=== PATIENT | male | born 1990 | race African-American/Black ===

== ENCOUNTER 2022-10-17 23:00 | Inpatient (IN) | payer OTHER ==
[2022-10-17 23:27] VITALS: RESP 18; BMI 28.7
[2022-10-18] MEDS ORDERED: MAGNESIUM CITRATE 300 ML BOTTLE PO PRN (00:16)
[2022-10-18] MEDS ORDERED: ACETAMINOPHEN 325 MG TABLET (FP) PO PRN (00:16)
[2022-10-18] MEDS ORDERED: MAG HYDROX/AL HYDROX/SIMETH 30 ML UNIT-DOSE CUP PO PRN (00:16)
[2022-10-18] MEDS ORDERED: IBUPROFEN 400 MG TABLET (FP) PO PRN (00:16)
[2022-10-18] MEDS ORDERED: guaiFENesin 200 MG/10 ML 10 ML UNIT-DOSE CUPS PO PRN (00:16)
[2022-10-18] MEDS ORDERED: P-EPHED 60MG/TRIPROLIDI 2.5MG TABLET PO PRN (00:16)
[2022-10-18] MEDS ORDERED: LOPERAMIDE HCL 2 MG CAPSULE PO PRN (00:16)
[2022-10-18] MEDS ORDERED: MAGNESIUM HYDROX 2400MG/30ML ORAL SUSPENSION 30 ML CUP PO PRN (00:16)
[2022-10-18] MEDS: NICOTINE 7 MG/24 HOURS TOPICAL PATCH TD SCH (11:00)
[2022-10-18] MEDS: PRENATAL VITAMINS W/ FOLIC ACID TABLET (FP) PO SCH (11:00)
[2022-10-18] MEDS: NICOTINE 10 MG CARTRIDGE (INHALER) IH PRN (12:35)
[2022-10-18 13:46] LABS: HEMATOCRIT 39.7 % (35.4-49); HEMOGLOBIN 13.1 GM/dL (11.7-16.9); MCH 30.4 pg (25.7-33.7); MCHC 32.9 g/dl (32.0-35.9); MEAN CELL VOLUME 92.4 fl (80-96); MEAN PLT VOLUME 8.3 fl (7.5-11.1); PLATELET COUNT 299 10^3/uL (134-434); WHITE BLOOD COUNT 6.6 K/mm3 (4.0-10.0)
[2022-10-18 13:46] LABS: PH,URINE 5.5 (5.0-8.0); URINE APPEARANCE CLEAR; URINE BILIRUBIN NEGATIVE (NEGATIVE); URINE COLOR YELLOW; URINE GLUCOSE (UA) NEGATIVE (NEGATIVE); URINE KETONE NEGATIVE (NEGATIVE); URINE LEUK ESTERASE NEGATIVE (NEGATIVE); URINE NITRITE NEGATIVE (NEGATIVE); URINE PROTEIN NEGATIVE (NEGATIVE); URINE UROBILINOGEN 0.2 mg/dL (0.2-1.0)
[2022-10-18 14:05] LABS: CALCIUM 8.6 mg/dL (8.5-10.1)
[2022-10-18 14:07] LABS: ALBUMIN 3.1 g/dl (3.4-5.0); BLOOD UREA NITROGEN 6.2 mg/dL (7-18)
[2022-10-18 14:09] LABS: CREATININE 0.7 mg/dL (0.55-1.3)
[2022-10-18 14:10] LABS: TOT PROT 6.3 g/dl (6.4-8.2)
[2022-10-18 14:11] LABS: BILIRUBIN,TOTAL 0.2 mg/dL (0.2-1)
[2022-10-18] MEDS ORDERED: ALBUTEROL SO4 HFA INHALER IH SCH (14:15)
[2022-10-18] MEDS ORDERED: TUBERCULIN PPD 5 TU/0.1ML VIAL ID ONE (14:33)
[2022-10-18] MEDS ORDERED: hydrOXYzine PAMOATE 25 MG CAPSULE (FP) PO ONE (15:03)
[2022-10-18] MEDS ORDERED: ALBUTEROL SO4 HFA INHALER IH PRN (15:03)
[2022-10-18 16:06] LABS: SYPHILIS W/ RPR CONF NON-REACTIVE (NONREACTIVE)
[2022-10-18] MEDS: THIAMINE HCL 100 MG TABLET (FP) PO SCH (21:05)
[2022-10-18] MEDS: MELATONIN 5 MG TABLETS PO SCH (21:05)
[2022-10-18] MEDS: HALOPERIDOL 5 MG TABLET PO SCH (21:06)
[2022-10-18] MEDS: traZODone HCL 50 MG TABLET (FP) PO SCH (21:06)
[2022-10-19] MEDS: PRENATAL VITAMINS W/ FOLIC ACID TABLET (FP) PO SCH (08:59)
[2022-10-19] MEDS: NICOTINE 7 MG/24 HOURS TOPICAL PATCH TD SCH (08:59)
[2022-10-19] MEDS: hydrOXYzine PAMOATE 25 MG CAPSULE (FP) PO PRN ×2 (12:00→18:34)
[2022-10-19] MEDS: NICOTINE 10 MG CARTRIDGE (INHALER) IH PRN (15:18)
[2022-10-19] MEDS: traZODone HCL 50 MG TABLET (FP) PO SCH (21:27)
[2022-10-19] MEDS: THIAMINE HCL 100 MG TABLET (FP) PO SCH (21:27)
[2022-10-19] MEDS: MELATONIN 5 MG TABLETS PO SCH (21:27)
[2022-10-19] MEDS: HALOPERIDOL 5 MG TABLET PO SCH (21:27)
[2022-10-20] MEDS: PRENATAL VITAMINS W/ FOLIC ACID TABLET (FP) PO SCH (10:17)
[2022-10-20] MEDS: NICOTINE 7 MG/24 HOURS TOPICAL PATCH TD SCH (10:18)
[2022-10-20] MEDS: hydrOXYzine PAMOATE 25 MG CAPSULE (FP) PO PRN (17:10)
[2022-10-20] MEDS: HALOPERIDOL 5 MG TABLET PO SCH (21:15)
[2022-10-20] MEDS: MELATONIN 5 MG TABLETS PO SCH (21:15)
[2022-10-20] MEDS: traZODone HCL 50 MG TABLET (FP) PO SCH (21:15)
[2022-10-20] MEDS: THIAMINE HCL 100 MG TABLET (FP) PO SCH (21:16)
[2022-10-21 06:54] VITALS: BP 123/82; PULSE 91; TEMP 97.7
[2022-10-21] MEDS: PRENATAL VITAMINS W/ FOLIC ACID TABLET (FP) PO SCH (09:25)
[2022-10-21] MEDS: NICOTINE 10 MG CARTRIDGE (INHALER) IH PRN (09:26)
[2022-10-21] MEDS: NICOTINE 7 MG/24 HOURS TOPICAL PATCH TD SCH (09:26)
== END 2022-10-21 17:00 | disposition left against medical advice (07) | DRG 770 ==
LOC: YASAS 23:00 → Y3W 10-18 02:33
PROVIDERS: ADMIT Allergy & Immunology; ATTEND Allergy & Immunology
PROC: HZ42ZZZ Group Counseling for Substance Abuse Treatment, Cognitive-Behavioral (ICD-10-PCS; principal; 2022-10-18)
DX: F10.20 Alcohol dependence, uncomplicated (principal); F14.20 Cocaine dependence, uncomplicated; F12.20 Cannabis dependence, uncomplicated; F17.210 Nicotine dependence, cigarettes, uncomplicated; F25.9 Schizoaffective disorder, unspecified; F19.282 Other psychoactive substance dependence with psychoactive substance-induced sleep disorder; F41.9 Anxiety disorder, unspecified; F32.9 Major depressive disorder, single episode, unspecified; J45.909 Unspecified asthma, uncomplicated; S09.90XA Unspecified injury of head, initial encounter; W18.49XA Other slipping, tripping and stumbling without falling, initial encounter; Y93.89 Activity, other specified; Y92.232 Corridor of hospital as the place of occurrence of the external cause
CPT/HCPCS: 36415; 80053; 81003; 85027; 86780; 86803; 93005; 93010; C9803-CS; U0003; U0005

== ENCOUNTER 2024-11-05 15:19 | Inpatient (IN) | payer OTHER ==
[2024-11-05 15:37] VITALS: RESP 16; BMI 23.6
[2024-11-05] MEDS ORDERED: BENZOCAINE/MENTHOL (CHLORASEPTIC ) LOZENGE MM PRN (16:00)
[2024-11-05] MEDS ORDERED: BENZONATATE 200 MG CAPSULE PO PRN (16:00)
[2024-11-05] MEDS ORDERED: MAG HYDROX/AL HYDROX/SIMETH 30 ML UNIT-DOSE CUP PO PRN (16:00)
[2024-11-05] MEDS ORDERED: IBUPROFEN 400 MG TABLET (FP) PO PRN (16:00)
[2024-11-05] MEDS ORDERED: IBUPROFEN 600 MG TABLET (FP) PO PRN (16:00)
[2024-11-05] MEDS ORDERED: DICYCLOMINE HCL 10 MG CAPSULE PO PRN (16:00)
[2024-11-05] MEDS ORDERED: hydrOXYzine PAMOATE 25 MG CAPSULE (FP) PO PRN (16:00)
[2024-11-05] MEDS ORDERED: POLYETHYLENE GLYCOL (HEALTHYLAX) 3350 17 GM PACKET PO PRN (16:00)
[2024-11-05] MEDS ORDERED: NALOXONE (NARCAN) HCL 4 MG/0.1 ML SPRAY NS PRN (16:00)
[2024-11-05] MEDS ORDERED: ACETAMINOPHEN 325 MG TABLET (FP) PO PRN (16:00)
[2024-11-05] MEDS ORDERED: MAGNESIUM HYDROX 2400MG/30ML ORAL SUSPENSION 30 ML CUP PO PRN (16:00)
[2024-11-05] MEDS ORDERED: guaiFENesin 600 MG TABLET.ER (FP) PO PRN (16:00)
[2024-11-05] MEDS ORDERED: LOPERAMIDE HCL 2 MG CAPSULE PO PRN (16:00)
[2024-11-05] MEDS ORDERED: NICOTINE POLACRILEX 4 MG GUM BUC PRN (16:00)
[2024-11-05] MEDS ORDERED: BISMUTH SUBSALICYLATE 524 MG/30 ML PO PRN (16:00)
[2024-11-05] MEDS ORDERED: METHOCARBAMOL 500 MG TABLET PO PRN (16:00)
[2024-11-05] MEDS ORDERED: NICOTINE POLACRILEX 4 MG LOZENGE BC PRN (16:00)
[2024-11-05] MEDS ORDERED: ALBUTEROL SO4 HFA INHALER IH PRN (16:02)
[2024-11-05] MEDS: THIAMINE 100 MG TABLET PO SCH (23:23)
[2024-11-05] MEDS: MELATONIN 5 MG TABLETS PO SCH (23:23)
[2024-11-06] MEDS ORDERED: HALOPERIDOL 5 MG TABLET PO SCH (10:00)
[2024-11-06] MEDS: PRENATAL VITAMINS W/ FOLIC ACID TABLET (FP) PO SCH (10:40)
[2024-11-06] MEDS: HALOPERIDOL 1 MG TABLET PO SCH (11:42)
[2024-11-06 12:49] LABS: CHLORIDE 109 mmol/L (98-107); POTASSIUM 3.4 mmol/L (3.5-5.1); SODIUM 145 mmol/L (136-145)
[2024-11-06 12:50] LABS: HEMATOCRIT 41.2 % (35.4-49); HEMOGLOBIN 13.3 GM/dL (11.7-16.9); MCH 31.1 pg (25.7-33.7); MCHC 32.2 g/dl (32.0-35.9); MEAN CELL VOLUME 96.6 fl (80-96); MEAN PLT VOLUME 7.7 fl (7.5-11.1); PLATELET COUNT 283 10^3/uL (134-434); RBC 4.26 M/mm3 (4.00-5.60); RDW 13.7 % (11.9-15.9); WHITE BLOOD COUNT 5.9 K/mm3 (4.0-10.0)
[2024-11-06 12:55] LABS: ANION GAP 9 mmol/L (4-13); BLOOD UREA NITROGEN 8.3 mg/dL (7-18); CALCIUM 8.6 mg/dL (8.5-10.1); CO2 27 mmol/L (21-32)
[2024-11-06 12:56] LABS: CREATININE 0.9 mg/dL (0.55-1.3); GLUCOSE,RANDOM 94 mg/dL (74-106)
[2024-11-06 12:58] LABS: BILIRUBIN,TOTAL 0.3 mg/dL (0.2-1); SGOT/AST 15 U/L (15-37); SGPT/ALT 21 U/L (13-61); TOT PROT 6.3 g/dl (6.4-8.2)
[2024-11-06 12:59] LABS: ALK PHOS 54 U/L (45-117)
[2024-11-06] MEDS: POTASSIUM CHLORIDE ORAL LIQUID 20 MEQ/15 ML PO ONE (17:13)
[2024-11-06] MEDS: ONDANSETRON *ODT* 4 MG TABLET SL PRN (17:13)
[2024-11-06] MEDS: traZODone HCL 50 MG TABLET (FP) PO SCH (21:40)
[2024-11-06] MEDS: HALOPERIDOL 5 MG TABLET PO SCH (21:40)
[2024-11-06] MEDS: POTASSIUM CHLORIDE ORAL LIQUID 20 MEQ/15 ML PO SCH (21:40)
[2024-11-07] MEDS: NALOXONE (NYS OPIOID OVERDOSE PROGRAM) 4 MG/0.1 ML SPRAY NS SCH (09:06)
[2024-11-07 09:29] VITALS: BP 107/67; PULSE 95; TEMP 98
== END 2024-11-07 11:15 | disposition home or self-care (01) | DRG 773 ==
LOC: YASAS 15:19 → Y6N 16:42
PROVIDERS: ADMIT Allergy & Immunology; ATTEND Surgery
PROC: HZ2ZZZZ Detoxification Services for Substance Abuse Treatment (ICD-10-PCS; principal; 2024-11-05)
DX: F11.23 Opioid dependence with withdrawal (principal); F14.20 Cocaine dependence, uncomplicated; F17.210 Nicotine dependence, cigarettes, uncomplicated; F19.982 Other psychoactive substance use, unspecified with psychoactive substance-induced sleep disorder; F25.9 Schizoaffective disorder, unspecified; F41.9 Anxiety disorder, unspecified; F33.9 Major depressive disorder, recurrent, unspecified; Z21 Asymptomatic human immunodeficiency virus [HIV] infection status; G47.00 Insomnia, unspecified; Z56.0 Unemployment, unspecified; Z59.00 Homelessness unspecified
CPT/HCPCS: 36415; 80053; 80307; 84132; 85027; 86780; 93005; 93010; Q0162